=== PATIENT | male | born 1935 | race Caucasian/White ===

== ENCOUNTER 2017-03-28 06:55 | Observation (INO) | payer MEDICARE, BC ==
[~2017-03-28] VITALS: Ht 188 cm; Wt 89.0 kg
[~2017-03-28 06:55] MED LIST: CLON0.1T PO; CLON1PAT8 TP; LOSA25TA5 PO
[2017-03-28] MEDS ORDERED: BACITRACIN OINT 500U/GM, 15 GM ONE (07:02)
[2017-03-28] MEDS ORDERED: BUPIVACAINE/PF-EPI 0.5% 1:200K ONE (07:03)
[2017-03-28] MEDS ORDERED: BACITRACIN 50,000 UNIT ONE (07:03)
[2017-03-28] MEDS ORDERED: THROMBIN 5,000 UNIT VIAL TP ONE (07:03)
[2017-03-28 08:34] VITALS: BP 199/96
[2017-03-28] MEDS ORDERED: LACTATED RINGERS 1,000 ML IV SCH (08:58)
[2017-03-28] MEDS ORDERED: MIDAZOLAM 1 MG/ML, 2ML ONE (09:33)
[2017-03-28] MEDS ORDERED: FENTANYL PF 250 MCG/5ML ONE (09:33)
[2017-03-28] MEDS ORDERED: hydrALAzine 20 MG/ML, 1ML IV PRN (10:30)
[2017-03-28] MEDS ORDERED: MEPERIDINE/PF 25MG/0.5ML IVPush PRN (10:30)
[2017-03-28] MEDS ORDERED: LABETALOL 5MG/ML, 20ML IV PRN (10:30)
[2017-03-28] MEDS ORDERED: ONDANSETRON 2MG/ML, 2ML IVPush PRN ×2 (10:30→11:30)
[2017-03-28] MEDS ORDERED: FENTANYL PF 100 MCG/2ML IV PRN (10:30)
[2017-03-28] MEDS ORDERED: ACETAMINOPHEN 325 MG TABLET PO PRN (10:30)
[2017-03-28] MEDS ORDERED: PROMETHAZINE 25 MG/ML, 1ML IV PRN (10:30)
[2017-03-28] MEDS ORDERED: OXYcodone 5 MG/5 ML ORAL.SOL UDC PO PRN (10:30)
[2017-03-28] MEDS ORDERED: HYDROmorphone 1 MG/ML, 1ML IV PRN (10:30)
[2017-03-28] MEDS ORDERED: ALBUTEROL/IPRATROPIUM 2.5MG/0.5MG, 3 ML NPPB PRN (10:30)
[2017-03-28] MEDS ORDERED: MIDAZOLAM 1 MG/ML, 2ML IV PRN (10:30)
[2017-03-28] MEDS ORDERED: ONDANSETRON 2MG/ML, 2ML ONE (10:54)
[2017-03-28] MEDS ORDERED: PHENYLEPHRINE 10 MG/ML ONE (10:54)
[2017-03-28] MEDS ORDERED: CEFAZOLIN 1,000 MG ONE (10:54)
[2017-03-28] MEDS ORDERED: PROPOFOL 10 MG/ML, 20ML ONE (10:54)
[2017-03-28] MEDS ORDERED: SUCCINYLCHOLINE 20 MG/ML, 10ML ONE (10:54)
[2017-03-28] MEDS ORDERED: EPHEDRINE 50 MG/ML, 1ML ONE (10:54)
[2017-03-28] MEDS ORDERED: DEXAMETHASONE 4 MG/ML, 1ML ONE (10:54)
[2017-03-28] MEDS ORDERED: PHARMACY MAY ADJ FOR RENAL FX MC PRN (11:30)
[2017-03-28] MEDS ORDERED: LABETALOL 5MG/ML, 20ML IVPush PRN (11:30)
[2017-03-28] MEDS ORDERED: SENNA/DOCUSATE TABLET PO PRN (11:30)
[2017-03-28] MEDS ORDERED: HYDROcodone/APAP 10/325 MG TABLET PO PRN (11:30)
[2017-03-28] MEDS ORDERED: DIPHENHYDRAMINE 50 MG CAPSULE PO PRN (11:30)
[2017-03-28] MEDS ORDERED: MAGNESIUM HYDROXIDE 8%, 30ML UDC PO PRN (11:30)
[2017-03-28] MEDS ORDERED: HYDROmorphone 1 MG/ML, 1ML IVPush PRN (11:30)
[2017-03-28] MEDS ORDERED: CYCLOBENZAPRINE 10 MG TABLET PO PRN (11:30)
[2017-03-28] MEDS ORDERED: hydrALAzine 20 MG/ML, 1ML ONE (11:32)
[2017-03-28] MEDS ORDERED: OXYcodone 5 MG/5 ML ORAL.SOL UDC ONE (11:59)
[2017-03-28] MEDS ORDERED: ACETAMINOPHEN 325 MG/10.15 ML UDC ONE (11:59)
[2017-03-28] MEDS ORDERED: ACETAMINOPHEN 650 MG/20.3 ML UDC ONE (11:59)
[2017-03-28] MEDS ORDERED: HYDROmorphone 1 MG/ML, 1ML ONE (12:00)
[2017-03-28 12:50] VITALS: BP 159/90
[2017-03-28] MEDS: CEFAZOLIN PMX 1GM/50ML 50 ML IVPB SCH ×2 (15:26→23:10)
[2017-03-28] MEDS: HYDROcodone/APAP 5/325 TABLET PO PRN ×2 (15:26→20:43)
[2017-03-28] MEDS: NS + 20MEQ KCL 1,000 ML IV SCH (15:27)
[2017-03-28] MEDS ORDERED: CALCIUM CARBONATE 500 MG TAB.CHEW PO PRN (18:30)
[2017-03-28 20:10] VITALS: BP 146/82
[2017-03-28 20:38] VITALS: BP 129/77
[2017-03-28] MEDS: SODIUM CHLORIDE FLUSH 10ML SYR IVF SCH (20:48)
[2017-03-29] MEDS: HYDROcodone/APAP 5/325 TABLET PO PRN ×3 (00:35→05:38)
[2017-03-29 00:37] VITALS: BP 144/78
[2017-03-29 04:02] VITALS: BP 123/70
[2017-03-29] MEDS: NS + 20MEQ KCL 1,000 ML IV SCH (04:22)
[2017-03-29 06:55] VITALS: BP 129/79
[2017-03-29] MEDS: SODIUM CHLORIDE FLUSH 10ML SYR IVF SCH (07:45)
[2017-03-29] MEDS ORDERED: MAGNESIUM CITRATE 300ML ORAL SOL PO PRN (08:30)
[2017-03-29 12:30] VITALS: BP 142/82
[2017-03-29] MEDS ORDERED: HYDR-3240 PO (12:50)
[2017-03-29] MEDS ORDERED: TIZA4TAB PO (12:50)
== END 2017-03-29 13:36 | disposition home or self-care (01) ==
LOC: OUT 06:55 → ORIP 11:27 → 4NOR 12:50 → DCLOUNGE 03-29 12:41
PROVIDERS: ADMIT Neurological Surgery; ATTEND Neurological Surgery
DX: M51.16 Intervertebral disc disorders with radiculopathy, lumbar region (principal); M48.06 Spinal stenosis, lumbar region; K59.00 Constipation, unspecified; R51 Headache
CPT/HCPCS: 63047; 63048; 72100; 96365; 96375; 97162; 97165; G0378; J0330; J0690; J1100; J2250; J2370; J2405; J2704; J3010; J3480

== ENCOUNTER 2019-03-03 21:25 | Inpatient (IN) | payer MEDICARE, BC ==
[~2019-03-03] VITALS: Ht 188 cm; Wt 85.0 kg
[~2019-03-03 21:25] MED LIST changes: -CLON0.1T PO; +CLON0.1T22 PO; +HYDR-3240 PO; +LOSA25TA25 PO; -LOSA25TA5 PO; +TIZA4TAB PO
[2019-03-03] MEDS ORDERED: MORPHINE SULFATE 4 MG/ML, 1ML ONE ×3 (21:43→23:50)
[2019-03-03] MEDS ORDERED: ONDANSETRON 2MG/ML, 2ML ONE (21:43)
[2019-03-03] MEDS: MORPHINE SULFATE 4 MG/ML, 1ML IVPush PRN ×2 (21:53→22:55)
--- NOTE | 2019-03-03 21:58 | NUR ---
PT MEDICATED PER, POC DISCUSSED. PT AWARE UA IS NEEDED HOWEVER STATES UNABLE TO PROVIDE AT THIS TIME.
[2019-03-03] MEDS ORDERED: SODIUM CHLORIDE FLUSH 10ML SYR IVF ONE (22:00)
[2019-03-03] MEDS ORDERED: ONDANSETRON 2MG/ML, 2ML IVPush ONE (22:00)
[2019-03-03 22:04] LABS: BASOPHILS # (AUTO) 0.02 x10^3/uL (0-0.1); BASOPHILS % (AUTO) 0 % (0-1); EOSINOPHILS # (AUTO) 0.08 x10^3/uL (0-0.4); EOSINOPHILS % (AUTO) 1 % (1-7); LYMPHOCYTES # (AUTO) 0.82 x10^3/uL (1-3.4); LYMPHOCYTES % (AUTO) 10 % (22-44); MD NO; MEAN CORPUSCULAR HEMOGLOBIN 31.2 pg (27.5-34.5); MEAN CORPUSCULAR HGB CONC 33.2 g/dL (33.2-36.2); MEAN CORPUSCULAR VOLUME 93.9 fL (81-97); MEAN PLATELET VOLUME 8.5 fL (7.4-10.4); MONOCYTES # (AUTO) 0.42 x10^3/uL (0.2-0.8); MONOCYTES % (AUTO) 5 % (2-9); NEUTROPHILS # (AUTO) 7.04 x10^3/uL (1.8-6.8); NEUTROPHILS % (AUTO) 84 % (42-75); PLATELET COUNT 201 x10^3/uL (130-400); RED BLOOD COUNT 5.09 x10^6/uL (4.38-5.82)
[2019-03-03 22:19] LABS: ALBUMIN 3.5 g/dL (3.4-5.0); ANION GAP 7 mmol/L (5-15); CHLORIDE 106 mmol/L (98-107)
[2019-03-03 22:26] LABS: ALANINE AMINOTRANSFERASE 192 U/L (12-78); ALKALINE PHOSPHATASE 369 U/L (45-117); BILIRUBIN,TOTAL 1.1 mg/dL (0.2-1.0); CREATININE 1.32 mg/dL (0.7-1.3); TOTAL PROTEIN 7.9 g/dL (6.4-8.2); TROPONIN I < 0.015 ng/mL (0.000-0.045)
--- NOTE | 2019-03-03 22:31 | NUR ---
pt in sono
--- NOTE | 2019-03-03 22:51 | NUR ---
PT RETURNED FROM [facility]
[2019-03-03] MEDS ORDERED: SODIUM CHLORIDE 0.9% 1,000 ML IV ONE (23:22)
[2019-03-03 23:53] LABS: MICROSCOPIC NOT IND
[2019-03-03] MEDS ORDERED: AMLO10TA8 PO (23:55)
[2019-03-03] MEDS ORDERED: FINA5TAB4 PO (23:55)
[2019-03-03] MEDS ORDERED: ESOM20CA PO (23:55)
--- NOTE | 2019-03-03 23:58 | NUR ---
SURGEON AT BEDSIDE. PT MEDICATED AGAIN
[2019-03-04] LABS: CULTURE INDICATED? NO
[2019-03-04] MEDS ORDERED: MORPHINE SULFATE 4 MG/ML, 1ML IVPush PRN
[2019-03-04] MEDS ORDERED: D5%-0.45NACL+KCL 20MEQ 1,000 ML IV SCH (00:05)
[2019-03-04] MEDS ORDERED: ENALAPRILAT 1.25 MG/ML, 2ML IVPush PRN (00:30)
[2019-03-04] MEDS ORDERED: PROMETHAZINE 25 MG/ML, 1ML IM PRN (00:30)
[2019-03-04] MEDS ORDERED: LABETALOL 5MG/ML, 20ML IVPush PRN (00:30)
[2019-03-04 00:52] VITALS: BP 187/95
[2019-03-04] MEDS: CEFOTETAN PMX 1GM/50ML 50 ML IVPB SCH ×2 (02:00→12:19)
[2019-03-04] MEDS: ONDANSETRON 2MG/ML, 2ML IVPush PRN (02:07)
[2019-03-04] MEDS: morphine SULFATE 10 MG/ML, 1ML IVPush PRN ×3 (03:04→18:22)
[2019-03-04] MEDS ORDERED: BUPIVACAINE/EPI 0.5% 1:200K ONE (03:52)
[2019-03-04 04:36] VITALS: BP 157/79
[2019-03-04] MEDS ORDERED: FENTANYL PF 250 MCG/5ML ONE (05:32)
[2019-03-04] MEDS ORDERED: FENTANYL PF 100 MCG/2ML ONE (06:35)
[2019-03-04] MEDS ORDERED: ACETAMINOPHEN 650 MG/20.3 ML UDC ONE (06:35)
[2019-03-04] MEDS ORDERED: OXYcodone 5 MG/5 ML ORAL.SOL UDC ONE (06:36)
[2019-03-04] MEDS ORDERED: PROMETHAZINE 25 MG/ML, 1ML IV PRN (07:00)
[2019-03-04] MEDS ORDERED: HYDROmorphone 2 MG/ML, 1ML IVPush PRN (07:00)
[2019-03-04] MEDS ORDERED: hydrALAzine 20 MG/ML, 1ML IV PRN (07:00)
[2019-03-04] MEDS ORDERED: KETOROLAC 30 MG/1 ML IV PRN (07:00)
[2019-03-04] MEDS ORDERED: ACETAMINOPHEN 325 MG TABLET PO PRN (07:00)
[2019-03-04] MEDS ORDERED: DIAZEPAM 5 MG/ML, 2ML IVPush PRN (07:00)
[2019-03-04] MEDS ORDERED: MEPERIDINE/PF 25MG/0.5ML IVPush PRN (07:00)
[2019-03-04] MEDS ORDERED: ALBUTEROL SULFATE 2.5 MG/3 ML NPPB PRN (07:00)
[2019-03-04] MEDS ORDERED: OXYcodone 5 MG/5 ML ORAL.SOL UDC PO PRN (07:00)
[2019-03-04] MEDS ORDERED: FENTANYL PF 100 MCG/2ML IV PRN (07:00)
[2019-03-04] MEDS ORDERED: LABETALOL 5MG/ML, 20ML IV PRN (07:00)
[2019-03-04] MEDS ORDERED: NEOSTIGMINE 1 MG/ML, 10ML ONE (07:47)
[2019-03-04] MEDS ORDERED: PROPOFOL 10 MG/ML, 20ML ONE (07:47)
[2019-03-04] MEDS ORDERED: DEXAMETHASONE 4 MG/ML, 1ML ONE (07:47)
[2019-03-04] MEDS ORDERED: CEFAZOLIN 1,000 MG ONE (07:47)
[2019-03-04] MEDS ORDERED: SUCCINYLCHOLINE 20 MG/ML, 10ML ONE (07:47)
[2019-03-04] MEDS ORDERED: GLYCOPYRROLATE 0.2MG/1ML, 5ML ONE (07:47)
[2019-03-04] MEDS ORDERED: ROCURONIUM 10MG/ML,5ML ONE (07:47)
[2019-03-04] MEDS ORDERED: ONDANSETRON 2MG/ML, 2ML ONE (07:47)
[2019-03-04] MEDS: FINASTERIDE 5 MG TABLET PO SCH (09:19)
[2019-03-04] MEDS: AMLODIPINE 10 MG TAB PO SCH (09:19)
[2019-03-04] MEDS: METRONIDAZOLE PMX 500MG/100ML 100 ML IV SCH ×2 (10:09→17:07)
[2019-03-04 11:11] LABS: ALBUMIN 3.3 g/dL (3.4-5.0); BILIRUBIN, DIRECT 0.3 mg/dL (0.1-0.2)
[2019-03-04 11:13] LABS: BILIRUBIN,INDIRECT 0.7 mg/dL (0.0-2.0); TOTAL PROTEIN 7.2 g/dL (6.4-8.2)
[2019-03-04 14:30] VITALS: BP 144/82
[2019-03-04 19:03] VITALS: BP 126/71
[2019-03-05] MEDS ORDERED: D5%-0.45NACL+KCL 20MEQ 1,000 ML IV SCH (00:05)
[2019-03-05] MEDS: CEFOTETAN PMX 1GM/50ML 50 ML IVPB SCH ×2 (00:23→12:25)
[2019-03-05] MEDS: morphine SULFATE 10 MG/ML, 1ML IVPush PRN ×3 (00:27→22:07)
[2019-03-05 01:37] VITALS: BP 124/66
[2019-03-05] MEDS: METRONIDAZOLE PMX 500MG/100ML 100 ML IV SCH ×3 (02:16→17:10)
[2019-03-05 05:31] LABS: BASOPHILS # (AUTO) 0.01 x10^3/uL (0-0.1); BASOPHILS % (AUTO) 0 % (0-1); EOSINOPHILS # (AUTO) 0.01 x10^3/uL (0-0.4); EOSINOPHILS % (AUTO) 0 % (1-7); LYMPHOCYTES # (AUTO) 0.69 x10^3/uL (1-3.4); LYMPHOCYTES % (AUTO) 7 % (22-44); MD NO; MEAN CORPUSCULAR HEMOGLOBIN 31.6 pg (27.5-34.5); MEAN CORPUSCULAR HGB CONC 33.7 g/dL (33.2-36.2); MEAN CORPUSCULAR VOLUME 93.8 fL (81-97); MEAN PLATELET VOLUME 9.3 fL (7.4-10.4); MONOCYTES # (AUTO) 0.53 x10^3/uL (0.2-0.8); MONOCYTES % (AUTO) 6 % (2-9); NEUTROPHILS % (AUTO) 87 % (42-75); PLATELET COUNT 176 x10^3/uL (130-400); RED BLOOD COUNT 4.61 x10^6/uL (4.38-5.82)
[2019-03-05 05:43] LABS: ALBUMIN 2.8 g/dL (3.4-5.0)
[2019-03-05 05:47] LABS: BILIRUBIN, DIRECT 0.3 mg/dL (0.1-0.2); BILIRUBIN,INDIRECT 0.9 mg/dL (0.0-2.0); BILIRUBIN,TOTAL 1.2 mg/dL (0.2-1.0); TOTAL PROTEIN 6.5 g/dL (6.4-8.2)
[2019-03-05 06:43] VITALS: BP 154/75
[2019-03-05] MEDS: FINASTERIDE 5 MG TABLET PO SCH (09:00)
[2019-03-05] MEDS: AMLODIPINE 10 MG TAB PO SCH (09:18)
[2019-03-05 14:13] VITALS: BP 148/72
[2019-03-05] MEDS ORDERED: PANTOPROZOLE 40MG TABLET ONE (14:59)
[2019-03-05] MEDS: PANTOPROZOLE 40MG TABLET PO SCH (15:02)
[2019-03-05] MEDS: ONDANSETRON 2MG/ML, 2ML IVPush PRN ×2 (17:05→22:15)
[2019-03-05 18:45] VITALS: BP 114/69
[2019-03-06] MEDS: CEFOTETAN PMX 1GM/50ML 50 ML IVPB SCH (00:06)
[2019-03-06 01:12] VITALS: BP 112/66
[2019-03-06] MEDS: METRONIDAZOLE PMX 500MG/100ML 100 ML IV SCH (02:10)
[2019-03-06] MEDS: morphine SULFATE 10 MG/ML, 1ML IVPush PRN (02:15)
[2019-03-06 06:58] VITALS: BP 122/73
[2019-03-06] MEDS: PANTOPROZOLE 40MG TABLET PO SCH (07:59)
[2019-03-06] MEDS: FINASTERIDE 5 MG TABLET PO SCH (07:59)
[2019-03-06] MEDS: AMLODIPINE 10 MG TAB PO SCH (07:59)
[2019-03-06] MEDS ORDERED: OXYcodone/APAP 7.5/325MG TABLET PO PRN (08:30)
[2019-03-06] MEDS ORDERED: OXYC-306 PO (08:43)
[2019-03-06] MEDS ORDERED: AMOX1TAB64 PO (08:43)
[2019-03-06] MEDS ORDERED: METR500T PO (08:44)
[2019-03-06] MEDS ORDERED: PANTOPROZOLE 40MG TABLET PO SCH (09:00)
== END 2019-03-06 09:25 | disposition home or self-care (01) | DRG 418 ==
LOC: ED 22:45 → EDIP 23:30 → 3NW 03-04 00:10 → DCLOUNGE 03-06 09:09
PROVIDERS: ADMIT Surgery; ATTEND Surgery
PROC: 0FT44ZZ Resection of Gallbladder, Percutaneous Endoscopic Approach (ICD-10-PCS; principal; 2019-03-04 06:00)
DX: K80.62 Calculus of gallbladder and bile duct with acute cholecystitis without obstruction (principal); N17.9 Acute kidney failure, unspecified; I10 Essential (primary) hypertension; G89.29 Other chronic pain; K82.8 Other specified diseases of gallbladder; Z88.2 Allergy status to sulfonamides; Z90.49 Acquired absence of other specified parts of digestive tract
CPT/HCPCS: 36415; 76700; 80053; 80076; 81003; 83690; 84484; 85025; 88304; 93005; 96361; 96374; 96375; 96376; C1729; G0378; J0690; J1100; J2405; J2704; J2710; J3010; J0330; J0360; J2270; J3480; J3490; J7030

== ENCOUNTER 2020-06-21 21:39 | Inpatient (IN) | payer MEDICARE, BC ==
[~2020-06-21] VITALS: Ht 185.4 cm; Wt 82.9 kg
[~2020-06-21 21:39] MED LIST changes: +AMLO10TA8 PO; +AMOX1TAB64 PO; +ESOM20CA PO; +FINA5TAB4 PO; +METR500T PO; +OXYC-306 PO; -TIZA4TAB PO; +TIZA4TAB2 PO
--- NOTE | 2020-06-21 22:26 | NUR ---
Pt comes in with at bedside stating that his doctor called telling him that he needed to be admited to the hospital d/t the bilirubin in his urine was high. Had labs and a urine done earlier today. A&Ox4, ambulates with a steady gait. Patient states that he has some lower abdominal discomfort but nothing that is new. Patient resting comfortably at this time, just went to US. Labs drawn and IV established. Will con't to monitor
[2020-06-21 22:47] LABS: BASOPHILS % (AUTO) 0 % (0-1); EOSINOPHILS % (AUTO) 1 % (1-7); LYMPHOCYTES % (AUTO) 10 % (22-44); MEAN CORPUSCULAR HEMOGLOBIN 30.7 pg (27.5-34.5); MEAN CORPUSCULAR HGB CONC 33.4 g/dL (33.2-36.2); MEAN PLATELET VOLUME 9.1 fL (7.4-10.4); MONOCYTES % (AUTO) 9 % (2-9); NEUTROPHILS % (AUTO) 80 % (42-75); PLATELET COUNT 191 x10^3/uL (130-400); RED BLOOD COUNT 4.68 x10^6/uL (4.38-5.82); RED CELL DISTRIBUTION WIDTH 13.8 % (9.4-14.8)
[2020-06-21 22:52] LABS: ANION GAP 5 mmol/L (5-15); CALCIUM 8.5 mg/dL (8.5-10.1); CHLORIDE 106 mmol/L (98-107); CREATININE 1.19 mg/dL (0.7-1.3); INTERNATIONAL NORMALIZED RATIO 1.01 (0.93-1.1); PROTHROMBIN TIME 10.7 Seconds (9.6-11.5)
[2020-06-21 22:53] LABS: ALANINE AMINOTRANSFERASE 111 U/L (12-78); BILIRUBIN, DIRECT 2.2 mg/dL (0.1-0.2)
[2020-06-21 22:54] LABS: MD NO
[2020-06-21 22:55] LABS: ALKALINE PHOSPHATASE 595 U/L (45-117); BILIRUBIN,TOTAL 3.5 mg/dL (0.2-1.0); TOTAL PROTEIN 7.4 g/dL (6.4-8.2)
[2020-06-22] VITALS (7 sets, daily range): BP systolic 130–198; BP diastolic 70–96
[2020-06-22] MEDS ORDERED: BISACODYL 10 MG SUPP PR PRN (03:00)
[2020-06-22] MEDS ORDERED: LIDODERM 5% PATCH TD PRN (03:00)
[2020-06-22] MEDS ORDERED: LABETALOL 5MG/ML, 20ML IVPush PRN (03:00)
[2020-06-22] MEDS ORDERED: ONDANSETRON 2MG/ML, 2ML IVPush PRN (03:00)
[2020-06-22] MEDS ORDERED: POTASSIUM CHLORIDE 40 MEQ in SODIUM CHLORIDE 0.9% 500 ML IV ONE (03:00)
[2020-06-22 05:57] LABS: BASOPHILS % (AUTO) 0 % (0-1); EOSINOPHILS % (AUTO) 1 % (1-7); LYMPHOCYTES % (AUTO) 16 % (22-44); MEAN CORPUSCULAR HEMOGLOBIN 30.7 pg (27.5-34.5); MEAN CORPUSCULAR HGB CONC 33.2 g/dL (33.2-36.2); MONOCYTES % (AUTO) 11 % (2-9); NEUTROPHILS % (AUTO) 72 % (42-75); PLATELET COUNT 180 x10^3/uL (130-400); RED BLOOD COUNT 4.62 x10^6/uL (4.38-5.82); RED CELL DISTRIBUTION WIDTH 13.6 % (9.4-14.8)
[2020-06-22 06:00] LABS: CHLORIDE 107 mmol/L (98-107)
[2020-06-22 06:11] LABS: ALANINE AMINOTRANSFERASE 110 U/L (12-78); ALKALINE PHOSPHATASE 601 U/L (45-117); ANION GAP 4 mmol/L (5-15); BILIRUBIN,TOTAL 3.2 mg/dL (0.2-1.0); CALCIUM 8.9 mg/dL (8.5-10.1); CREATININE 1.14 mg/dL (0.7-1.3); TOTAL PROTEIN 7.4 g/dL (6.4-8.2)
[2020-06-22 06:25] LABS: MD NO
[2020-06-22] MEDS ORDERED: OMNIPAQUE 350 MG/ML, 100ML BOTTLE ONE (06:27)
[2020-06-22] MEDS: OMEPRAZOLE 20 MG CAPSULE.DR PO SCH (08:53)
[2020-06-22] MEDS: SENNA/DOCUSATE TABLET PO SCH (08:53)
[2020-06-22] MEDS: CEFTRIAXONE PMX 2GM/50ML 50 ML IVPB SCH (17:51)
[2020-06-22] MEDS: METRONIDAZOLE PMX 500MG/100ML 100 ML IV SCH (21:19)
[2020-06-23 04:43] VITALS: BP_SYST 15; BP_SYST 150; BP_DIAS 80
[2020-06-23] MEDS: METRONIDAZOLE PMX 500MG/100ML 100 ML IV SCH ×3 (05:35→20:33)
[2020-06-23 06:21] LABS: ALANINE AMINOTRANSFERASE 106 U/L (12-78); ALBUMIN 2.7 g/dL (3.4-5.0); ANION GAP 5 mmol/L (5-15); CALCIUM 8.5 mg/dL (8.5-10.1); CHLORIDE 107 mmol/L (98-107); CREATININE 1.14 mg/dL (0.7-1.3)
[2020-06-23 06:23] LABS: ALKALINE PHOSPHATASE 557 U/L (45-117); BILIRUBIN,TOTAL 3.7 mg/dL (0.2-1.0); TOTAL PROTEIN 7.1 g/dL (6.4-8.2)
[2020-06-23 06:28] LABS: BASOPHILS % (AUTO) 0 % (0-1); EOSINOPHILS % (AUTO) 1 % (1-7); LYMPHOCYTES % (AUTO) 14 % (22-44); MEAN CORPUSCULAR HGB CONC 33.5 g/dL (33.2-36.2); MEAN PLATELET VOLUME 9.4 fL (7.4-10.4); MONOCYTES % (AUTO) 10 % (2-9); NEUTROPHILS % (AUTO) 75 % (42-75); PLATELET COUNT 183 x10^3/uL (130-400); RED BLOOD COUNT 4.72 x10^6/uL (4.38-5.82)
[2020-06-23 06:36] LABS: MD NO
[2020-06-23 07:32] VITALS: BP 152/81
[2020-06-23] MEDS: OMEPRAZOLE 20 MG CAPSULE.DR PO SCH (08:13)
[2020-06-23] MEDS: AMLODIPINE 10 MG TAB PO SCH (08:13)
[2020-06-23] MEDS: FINASTERIDE 5 MG TABLET PO SCH (08:13)
[2020-06-23] MEDS: SENNA/DOCUSATE TABLET PO SCH (08:17)
[2020-06-23] MEDS ORDERED: ROCURONIUM 10MG/ML,5ML ONE (08:20)
[2020-06-23] MEDS ORDERED: TEMPLATE NON-FORMULARY MED. (Esomeprazole Magnesium** (Nexium**) 20 MG) PO SCH (09:00)
[2020-06-23] MEDS ORDERED: CHLORHEXIDINE 15 ML UDC ONE (13:08)
[2020-06-23] MEDS ORDERED: FENTANYL PF 100 MCG/2ML ONE (13:14)
[2020-06-23] MEDS ORDERED: PROMETHAZINE 25 MG SUPP PR PRN (13:30)
[2020-06-23] MEDS ORDERED: FENTANYL PF 100 MCG/2ML IV PRN (13:30)
[2020-06-23] MEDS ORDERED: OXYcodone 5 MG/5 ML ORAL.SOL UDC PO PRN (13:30)
[2020-06-23] MEDS ORDERED: PROMETHAZINE 25 MG/ML, 1ML IVPush PRN (13:30)
[2020-06-23] MEDS ORDERED: ONDANSETRON 2MG/ML, 2ML IVPush PRN (13:30)
[2020-06-23] MEDS ORDERED: ACETAMINOPHEN 325 MG TABLET PO PRN (13:30)
[2020-06-23] MEDS ORDERED: OMNIPAQUE 350 MG/ML, 50 ML BOTTLE ONE (13:35)
[2020-06-23] MEDS ORDERED: SUCCINYLCHOLINE 20 MG/ML, 10ML ONE (14:20)
[2020-06-23] MEDS ORDERED: DEXAMETHASONE 4 MG/ML, 1ML ONE (14:20)
[2020-06-23] MEDS ORDERED: GLYCOPYRROLATE 0.2MG/1ML, 5ML ONE (14:20)
[2020-06-23] MEDS ORDERED: PROPOFOL 10 MG/ML, 20ML ONE (14:20)
[2020-06-23] MEDS ORDERED: CEFAZOLIN 1,000 MG ONE (14:20)
[2020-06-23] MEDS ORDERED: NEOSTIGMINE 1 MG/ML, 10ML ONE (14:20)
[2020-06-23] MEDS ORDERED: ONDANSETRON 2MG/ML, 2ML ONE (14:20)
[2020-06-23 16:00] VITALS: BP 144/80
[2020-06-23] MEDS: CEFTRIAXONE PMX 2GM/50ML 50 ML IVPB SCH (18:08)
[2020-06-23 19:37] VITALS: BP 152/80
[2020-06-23 23:50] VITALS: BP 108/69
[2020-06-24] MEDS: METRONIDAZOLE PMX 500MG/100ML 100 ML IV SCH ×3 (04:55→20:57)
[2020-06-24 04:56] VITALS: BP 114/69
[2020-06-24 06:12] LABS: ALBUMIN 2.6 g/dL (3.4-5.0); ANION GAP 7 mmol/L (5-15); CALCIUM 8.5 mg/dL (8.5-10.1); CHLORIDE 105 mmol/L (98-107)
[2020-06-24 06:16] LABS: ALANINE AMINOTRANSFERASE 113 U/L (12-78); ALKALINE PHOSPHATASE 543 U/L (45-117); BILIRUBIN,TOTAL 5.8 mg/dL (0.2-1.0); CREATININE 1.48 mg/dL (0.7-1.3)
[2020-06-24 07:15] VITALS: BP 110/67
[2020-06-24] MEDS: OMEPRAZOLE 20 MG CAPSULE.DR PO SCH (07:30)
[2020-06-24] MEDS: NS + 20MEQ KCL 1,000 ML IV SCH ×2 (08:22→18:00)
[2020-06-24] MEDS: AMLODIPINE 10 MG TAB PO SCH (08:22)
[2020-06-24] MEDS: SENNA/DOCUSATE TABLET PO SCH (08:23)
[2020-06-24] MEDS: FINASTERIDE 5 MG TABLET PO SCH (08:23)
[2020-06-24 13:00] VITALS: BP 127/72
[2020-06-24 14:36] LABS: ANION GAP 5 mmol/L (5-15); CALCIUM 8.4 mg/dL (8.5-10.1); CHLORIDE 107 mmol/L (98-107); CREATININE 1.21 mg/dL (0.7-1.3)
[2020-06-24 14:37] LABS: ALANINE AMINOTRANSFERASE 115 U/L (12-78); ALBUMIN 2.5 g/dL (3.4-5.0)
[2020-06-24 14:39] LABS: ALKALINE PHOSPHATASE 493 U/L (45-117); BILIRUBIN,TOTAL 4.7 mg/dL (0.2-1.0); TOTAL PROTEIN 6.7 g/dL (6.4-8.2)
[2020-06-24] MEDS: CEFTRIAXONE PMX 2GM/50ML 50 ML IVPB SCH (18:00)
[2020-06-24 19:50] VITALS: BP 142/85
[2020-06-25] MEDS: NS + 20MEQ KCL 1,000 ML IV SCH (03:27)
[2020-06-25 03:32] VITALS: BP 127/75
[2020-06-25] MEDS: METRONIDAZOLE PMX 500MG/100ML 100 ML IV SCH ×2 (05:11→13:25)
[2020-06-25 05:48] LABS: CHLORIDE 110 mmol/L (98-107)
[2020-06-25 05:56] LABS: ALANINE AMINOTRANSFERASE 105 U/L (12-78); ALBUMIN 2.5 g/dL (3.4-5.0); ALKALINE PHOSPHATASE 453 U/L (45-117); ANION GAP 6 mmol/L (5-15); BILIRUBIN,TOTAL 2.4 mg/dL (0.2-1.0); CALCIUM 8.5 mg/dL (8.5-10.1); CREATININE 1.01 mg/dL (0.7-1.3); TOTAL PROTEIN 6.7 g/dL (6.4-8.2)
[2020-06-25 07:10] VITALS: BP 124/61
[2020-06-25] MEDS: OMEPRAZOLE 20 MG CAPSULE.DR PO SCH (07:49)
[2020-06-25] MEDS: AMLODIPINE 10 MG TAB PO SCH (08:54)
[2020-06-25] MEDS: SENNA/DOCUSATE TABLET PO SCH (08:55)
[2020-06-25] MEDS: FINASTERIDE 5 MG TABLET PO SCH (08:55)
[2020-06-25 12:27] VITALS: BP 146/81
== END 2020-06-25 15:13 | disposition home or self-care (01) | DRG 445 ==
LOC: ED 22:05 → INTOOBSV 06-22 01:45 → OBSVTOIN 06-22 01:45 → EDIP 06-22 01:45 → 3WST 06-22 04:02
PROVIDERS: ADMIT Family Medicine; ATTEND Internal Medicine
PROC: BF131ZZ Fluoroscopy of Gallbladder and Bile Ducts using Low Osmolar Contrast (ICD-10-PCS; 2020-06-23)
PROC: 0FC98ZZ Extirpation of Matter from Common Bile Duct, Via Natural or Artificial Opening Endoscopic (ICD-10-PCS; principal; 2020-06-23 14:00)
DX: K80.30 Calculus of bile duct with cholangitis, unspecified, without obstruction (principal); R17 Unspecified jaundice; E44.1 Mild protein-calorie malnutrition; I10 Essential (primary) hypertension; K21.9 Gastro-esophageal reflux disease without esophagitis; G89.29 Other chronic pain; N40.0 Benign prostatic hyperplasia without lower urinary tract symptoms; K59.09 Other constipation; Z20.828 Contact with and (suspected) exposure to other viral communicable diseases; Z80.1 Family history of malignant neoplasm of trachea, bronchus and lung; Z82.5 Family history of asthma and other chronic lower respiratory diseases; Z90.49 Acquired absence of other specified parts of digestive tract; Z88.2 Allergy status to sulfonamides
CPT/HCPCS: 36415; 74177; 74181; 74328; 76700; 80053; 80074; 80307; 82248; 83690; 83735; 85025; 85610; 87635; 93005; G0378; J0690; J0696; J1100; J2405; J2704; J2710; J3010; J3480; Q9967; C1769; J0330; J7040

== ENCOUNTER 2020-11-04 09:59 | Day surgery (SDC) | payer MEDICARE, BC ==
[~2020-11-04] VITALS: Ht 185.4 cm; Wt 88.6 kg
[~2020-11-04 09:59] MED LIST changes: +AMLO-211 PO; -AMLO10TA8 PO; +HYDR-1067 PO; -HYDR-3240 PO; -OXYC-306 PO; +OXYC1TAB17 PO
[2020-11-04] MEDS ORDERED: PLEASE ENTER HEIGHT AND WEIGHT MC SCH (10:30)
[2020-11-04] MEDS ORDERED: ASPIRIN 325 MG TABLET EC PO ONE (10:30)
[2020-11-04] MEDS ORDERED: FAMO20TA7 PO (10:41)
[2020-11-04] MEDS ORDERED: CLON0.1T2 PO (10:44)
[2020-11-04 12:03] LABS: BASOPHILS % (AUTO) 0 % (0-1); EOSINOPHILS % (AUTO) 2 % (1-7); LYMPHOCYTES % (AUTO) 22 % (22-44); MEAN CORPUSCULAR HGB CONC 34.2 g/dL (33.2-36.2); MEAN PLATELET VOLUME 8.5 fL (7.4-10.4); MONOCYTES % (AUTO) 8 % (2-9); NEUTROPHILS % (AUTO) 68 % (42-75); PLATELET COUNT 151 x10^3/uL (130-400); RED BLOOD COUNT 4.93 x10^6/uL (4.38-5.82); RED CELL DISTRIBUTION WIDTH 12.9 % (9.4-14.8)
[2020-11-04] MEDS ORDERED: ESOM20CA PO (12:03)
[2020-11-04] MEDS ORDERED: [UNRECOGNIZED DRUG - REMARK] (12:05)
[2020-11-04 12:06] VITALS: BP 151/77
[2020-11-04] MEDS ORDERED: ASPIRIN 325 MG TABLET EC ONE (12:16)
[2020-11-04 12:21] LABS: MD SCAN
[2020-11-04] MEDS ORDERED: VERAPAMIL 2.5 MG/ML, 2ML ONE (12:26)
[2020-11-04] MEDS ORDERED: BIVALIRUDIN 250 MG ONE (12:26)
[2020-11-04] MEDS ORDERED: HEPARIN 1,000 UNITS/ML, 10ML ONE (12:26)
[2020-11-04] MEDS ORDERED: FENTANYL PF 100 MCG/2ML ONE (12:26)
[2020-11-04] MEDS ORDERED: MIDAZOLAM 1 MG/ML, 5ML ONE (12:26)
[2020-11-04] MEDS ORDERED: LIDOCAINE-MPF 1%, 5ML ONE (12:26)
[2020-11-04] MEDS ORDERED: TICAGRELOR 90 MG TABLET ONE (12:26)
[2020-11-04] MEDS ORDERED: SODIUM CHLORIDE 0.9% 1,000 ML IV SCH (13:00)
== END 2020-11-04 15:10 | disposition home or self-care (01) ==
LOC: CACL 09:59
PROVIDERS: ATTEND Internal Medicine Cardiovascular Disease
DX: R94.31 Abnormal electrocardiogram [ECG] [EKG] (principal); I25.110 Atherosclerotic heart disease of native coronary artery with unstable angina pectoris; I25.83 Coronary atherosclerosis due to lipid rich plaque; I08.2 Rheumatic disorders of both aortic and tricuspid valves; I10 Essential (primary) hypertension; E78.5 Hyperlipidemia, unspecified; Z79.899 Other long term (current) drug therapy; Z88.2 Allergy status to sulfonamides
CPT/HCPCS: 36415; 85025; 93306; 93356; 93458; 99156; C1769; C1894; J1644; J2250; J3010; Q9967; J0583